=== PATIENT | female | born 1990 | race Caucasian/White ===

== ENCOUNTER → 2018-07-21 13:00 | Outpatient (CLI) | payer OTHER, SELFPAY | DX: Z23 Encounter for immunization (principal) | CPT/HCPCS: 90471; 90686 ==

== ENCOUNTER → 2024-07-02 17:59 | Outpatient (CLI) | payer OTHER, SELFPAY | PROVIDERS: PCP Family Medicine; Referring Provider Internal Medicine; Visit Provider Internal Medicine | DX: Z23 Encounter for immunization (principal) | CPT/HCPCS: 90471; 90656 ==

== ENCOUNTER 2024-08-24 20:19 | Emergency (ER) | payer OTHER, SELFPAY ==
[2024-08-24 20:24] VITALS: BP 132/90; PULSE 70; RESP 16; TEMP 36.6; O2SAT 100; BMI 28.0
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
[2024-08-24] MEDS: AMOXICILLIN/CLAV 875/125 MG 1 TAB PO (20:31)
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
== END 2024-08-24 21:22 | disposition home or self-care (01) ==
PROVIDERS: Emergency Provider Student in an Organized Health Care Education/Training Program
DX: S61.052A Open bite of left thumb without damage to nail, initial encounter (principal); W50.3XXA Accidental bite by another person, initial encounter; Y99.0 Civilian activity done for income or pay
CPT/HCPCS: 73130; 99283

== ENCOUNTER 2025-04-24 09:00 | Outpatient (RCR) | payer OTHER, SELFPAY ==
--- NOTE | 2025-03-08 17:58 | PT.OIE ---
Current Diagnoses Pain in right shoulder (03/08/25) Past Medical History (This Medical Record has been edited. Action required.) Cervical ectropion Encounter for fertility preservation counseling Endometrial polyp Headache Menorrhagia Migraines (~2006) Nevus of labia majora Pain due to intrauterine contraceptive device (IUD) Painful menstruation Past Surgical History (This Medical Record has been edited. Action required.) [place] teeth removed Visit Care Team Role Provider Type Vy Martino MD Family Provider Physician Primary Care Provider Specialty: Family Practice INTERACTIVE MEDIA PROJECT MANAGER Address: [address] [place] [address], [id number] Fax: Email: [email or web address] Cynthia Mckay PA-C Attending Provider Advanced Flight Service Specialist Referring Provider Specialty: Orthopedics Orthopedic Surgery Address: [address] [place] [address], [id number] Email: [email or web address] Physical Therapy Initial Evaluation PT-OP-A Visit Information Start: 03/08/25 09:44 Freq: Status: Active Protocol: Document 03/08/25 17:16 BL (Rec: 03/08/25 17:57 BL Laptop) Out-Patient Physical Therapy Visit Information Visit Information Visit Type Initial Evaluation Visit Start Time 09:45 Visit Stop Time 10:30 Visit Number (1) 1/10 (PN by 04/07/25) Number of INFECTION CONTROL NURSE Visits 0 Evaluation Information Evaluation Date 03/08/25 PT-OP-C Subjective Start: 03/08/25 09:44 Freq: Status: Active Protocol: Document 03/08/25 17:16 BL (Rec: 03/08/25 17:57 BL Laptop) OP-PT Subjective Patient Comments Patient Comments Pt presents to the clinic this date with R shoulder pain, pt reports insidious onset. Pt states pain began over a year ago, reports her pain hasnt increased and describes this as more of an annoyance type pain. Pt does report she has started to have clicking and a grinding sensation in her shoulder, pt also reports her symptoms have started to occur in her L shoulder. Pt reports greatest pain with over head activities or reaching behind her back. Reports pain as dully achy pain that is 4/10 at its worst. Pt states she had a cortisone injection without much success. Patient Reported Worse Progress Patient Questionnaires Quick Dash- Upper Extremity Quick Dash UE Score 9% disability PT-OP-F Manual Assessment Start: 03/08/25 09:44 Freq: Status: Active Protocol: Document 03/08/25 17:16 BL (Rec: 03/08/25 17:57 BL Laptop) Manual Assessments Soft Tissue Assessment Soft Tissue Mobility Pt is point tender with palpation through biceps/ Assessment subscapularis area with palpation on R. Joint Mobility Assessment Joint Mobility pt demos rounded shoulders with decreased posterior Assessment translation. PT-OP-H Neuro Start: 03/08/25 09:44 Freq: Status: Active Protocol: Document 03/08/25 17:16 BL (Rec: 03/08/25 17:57 BL Laptop) Sensation Evaluation Comments Summary Comments pt reports occasional numb feeling in R UE with overhead activity or stomach sleeping. Coordination Evaluation Comments Coordination pt denies feelings of coordination changes. Comments PT-OP-J Posture/Palpation/Skin Start: 03/08/25 09:44 Freq: Status: Active Protocol: Document 03/08/25 17:16 BL (Rec: 03/08/25 17:57 BL Laptop) Posture Evaluation Comments Posture Comments Pt demos rounded shoulders with limitations in scapular retraction. PT-OP-K Range of Motion Start: 03/08/25 09:44 Freq: Status: Active Protocol: Document 03/08/25 17:16 BL (Rec: 03/08/25 17:57 BL Laptop) Cervical Spine Range of Motion Cervical Spine Active Percentage Testing Position Sitting Flexion 100 Extension 100 Rotation Left 100 Rotation Right 100 Lateral Flexion Left 100 Lateral Flexion 100 Right Comments pt demos R>L with rotation however both remain WNL. Shoulder Goniometric Range of Motion Shoulder Right Active Shoulder ROM WFL Yes Comments pt demos increased pain to R side with flexion above 160 deg Left Active Shoulder ROM WFL Yes PT-OP-L Special Tests Start: 03/08/25 09:44 Freq: Status: Active Protocol: Document 03/08/25 17:16 BL (Rec: 03/08/25 17:57 BL Laptop) Special Tests Shoulder Special Tests Trigg Test Test Results negative Lift-Off Rotator Cuff Test Results negative Comments pain response when returning from this position Biceps Load II Test Test Results positive Khoury Jerry Impingement Test Results negative Apprehension Test Test Results negative PT-OP-M Strength Start: 03/08/25 09:44 Freq: Status: Active Protocol: Document 03/08/25 17:16 BL (Rec: 03/08/25 17:57 BL Laptop) Scapula Strength Scapula Manual Muscle Testing Right Elevation (C4) 5 Normal Adduction 4 Good Left Elevation (C4) 5 Normal Adduction 4 Good Shoulder Strength Shoulder Manual Muscle Testing Right Flexion 4+ Good+ Abduction (C5) 4 Good External Rotation 4 Good Internal Rotation 4+ Good+ Left Flexion 4+ Good+ Abduction (C5) 4+ Good+ External Rotation 4+ Good+ Internal Rotation 4+ Good+ PT-OP-Q Treatments Start: 03/08/25 09:44 Freq: Status: Active Protocol: Document 03/08/25 17:16 BL (Rec: 03/08/25 17:57 BL Laptop) Therapeutic Exercises Sidelying Exercises strength Sidelying Exercise ER to 90 Name Resistance 0# Comments 1x10 Standing Exercises posture Standing Exercise scap retraction, wall angles Name Comments 10x PT-OP-T Assessment and Plan Start: 03/08/25 09:44 Freq: Status: Active Protocol: Document 03/08/25 17:16 BL (Rec: 03/08/25 17:57 BL Laptop) Physical Therapy Assessment Rehab Potential Rehabilitation Good Potential Evaluation Complexity Number of Personal 1-2 Factors/ Comorbidities Number of Body 3 Systems Impaired Clinical Evolving Presentation at Evaluation Impairments Impairments Activity Tolerance,Functional Activities,Functional Mobility,Pain,Posture,ROM,Sensation,Soft Tissue Mobility,Strength Goals Three Fpc Goal (LTG) Pt will report being able complete work shift without increase in symptoms by DC for improved quality of life . Two Oenologist Goal (LTG) Pt will report a decrease in pain to 1/10 or better with washing her hair by DC for improved quality of life. One Short Term Goal (STG pt will be ind with HEP within 2 visit in order to ) progress toward long distance operator therapy goals outside of therapy visits. Fpc Goal (LTG) Pt will demo improved R ER strength to 4+/5 by DC for improved completion of ADLS. Assessment Summary Assessment Pt presents to the clinic this date with R shoulder pain with over head activities that has been present for over a year. Pt demos limitations in pain free AROM and strength. Pt also demos decreased scapular strength and postural awareness and will benefit from skilled Physical Therapy for strength and endurance training to improve posture and decrease strain through shoulder. Todays testing revealed possible labral involvement and pt may benefit from additional imaging to rule out labral tear in the future. Physical Therapy Plan Frequency and Duration Frequency of 2x/Week Treatment Duration of 8 treatment (weeks) Plan of Care Start 03/08/25 Date Plan of Care End 05/03/25 Date Therapeutic Interventions Therapeutic Coordination Training,Home Exercise Program,Joint Interventions Mobilizations,Manual Therapy,Neuromuscular Re-education ,Patient/Caregiver Education,Self-Care/Home Management, Sensory Integration,Soft Tissue Mobilization,Taping, Therapeutic Activities,Therapeutic Exercises Modalities Cold Pack/Ice Massage,Electric Stimulation,Hot Packs, Infrared Therapy,Iontophoresis,Ultrasound Next Visit Focus/Plan Next Note Type Treatment Note Next Visit Plan Progress HEP for scapular strengthening, further testing for labral tear, postural modification and strengthening.
--- NOTE | 2025-03-08 17:58 | PT.OPPOC ---
Physical, Occupational & Speech Therapy At [facility] Current Diagnoses Pain in right shoulder (03/08/25) Visit Care Team Role Provider Type Vy Martino MD Family Provider Physician Primary Care Provider Specialty: Family Practice MERCURY RECOVERER Address: [address] [place], [address] Fax: Email: [email or web address] Cynthia Mckay PA-C Attending Provider Advanced Light Coil Winder Referring Provider Specialty: Orthopedics Orthopedic Surgery Address: [address] [place] [address], [phone] Email: [email or web address] Plan Of Care PT-OP-T Assessment and Plan Start: 03/08/25 09:44 Freq: Status: Active Protocol: Document 03/08/25 17:16 BL (Rec: 03/08/25 17:57 BL Laptop) Physical Therapy Assessment Rehab Potential Rehabilitation Good Potential Evaluation Complexity Number of Personal 1-2 Factors/ Comorbidities Number of Body 3 Systems Impaired Clinical Evolving Presentation at Evaluation Impairments Impairments Activity Tolerance,Functional Activities,Functional Mobility,Pain,Posture,ROM,Sensation,Soft Tissue Mobility,Strength Goals Three White Sugar Pan Tank Operator Goal (LTG) Pt will report being able complete work shift without increase in symptoms by DC for improved quality of life . Two Long-Term Goal (LTG) Pt will report a decrease in pain to 1/10 or better with washing her hair by DC for improved quality of life. One Short Term Goal (STG pt will be ind with HEP within 2 visit in order to ) progress toward rat exterminator therapy goals outside of therapy visits. White Sugar Pan Tank Operator Goal (LTG) Pt will demo improved R ER strength to 4+/5 by DC for improved completion of ADLS. Assessment Summary Assessment Pt presents to the clinic this date with R shoulder pain with over head activities that has been present for over a year. Pt demos limitations in pain free AROM and strength. Pt also demos decreased scapular strength and postural awareness and will benefit from skilled Physical Therapy for strength and endurance training to improve posture and decrease strain through shoulder. Todays testing revealed possible labral involvement and pt may benefit from additional imaging to rule out labral tear in the future. Physical Therapy Plan Frequency and Duration Frequency of 2x/Week Treatment Duration of 8 treatment (weeks) Plan of Care Start 03/08/25 Date Plan of Care End 05/03/25 Date Therapeutic Interventions Therapeutic Coordination Training,Home Exercise Program,Joint Interventions Mobilizations,Manual Therapy,Neuromuscular Re-education ,Patient/Caregiver Education,Self-Care/Home Management, Sensory Integration,Soft Tissue Mobilization,Taping, Therapeutic Activities,Therapeutic Exercises Modalities Cold Pack/Ice Massage,Electric Stimulation,Hot Packs, Infrared Therapy,Iontophoresis,Ultrasound Next Visit Focus/Plan Next Note Type Treatment Note Next Visit Plan Progress HEP for scapular strengthening, further testing for labral tear, postural modification and strengthening. Plan of Care Dates Plan of Care Start Date 03/08/25 Plan of Care End Date 05/03/25 Electronically Signed by: Richi Phillips, PT 03/08/25 9990 If you are in agreement with this Plan of Care, please return a signed and dated copy. I have reviewed this Plan of Care and certify that the skilled therapy services above are required to meet the patient?s needs. Physician Signature Date Printed Name and Credentials Clinical Instructor Signature Printed Name and Credentials
--- NOTE | 2025-03-15 09:52 | PT.OTN ---
Current Diagnoses Pain in right shoulder (03/15/25) Physical Therapy Treatment Note PT-OP-A Visit Information Start: 03/08/25 09:44 Freq: Status: Active Protocol: Document 03/15/25 09:12 BL (Rec: 03/15/25 09:52 BL Laptop) Out-Patient Physical Therapy Visit Information Visit Information Visit Type Treatment Note Visit Start Time 09:05 Visit Stop Time 09:45 Visit Number (2) 2/10 (PN by 04/07/25) Number of CHIEF TRANSFER AND PUMPHOUSE OPERATOR Visits 0 PT-OP-C Subjective Start: 03/08/25 09:44 Freq: Status: Active Protocol: Document 03/15/25 09:12 BL (Rec: 03/15/25 09:52 BL Laptop) OP-PT Subjective Patient Comments Patient Comments Pt PT-OP-F Manual Assessment Start: 03/08/25 09:44 Freq: Status: Active Protocol: Document 03/08/25 17:16 BL (Rec: 03/08/25 17:57 BL Laptop) Manual Assessments Soft Tissue Assessment Soft Tissue Mobility Pt is point tender with palpation through biceps/ Assessment subscapularis area with palpation on R. Joint Mobility Assessment Joint Mobility pt demos rounded shoulders with decreased posterior Assessment translation. PT-OP-H Neuro Start: 03/08/25 09:44 Freq: Status: Active Protocol: Document 03/08/25 17:16 BL (Rec: 03/08/25 17:57 BL Laptop) Sensation Evaluation Comments Summary Comments pt reports occasional numb feeling in R UE with overhead activity or stomach sleeping. Coordination Evaluation Comments Coordination pt denies feelings of coordination changes. Comments PT-OP-J Posture/Palpation/Skin Start: 03/08/25 09:44 Freq: Status: Active Protocol: Document 03/08/25 17:16 BL (Rec: 03/08/25 17:57 BL Laptop) Posture Evaluation Comments Posture Comments Pt demos rounded shoulders with limitations in scapular retraction. PT-OP-K Range of Motion Start: 03/08/25 09:44 Freq: Status: Active Protocol: Document 03/08/25 17:16 BL (Rec: 03/08/25 17:57 BL Laptop) Cervical Spine Range of Motion Cervical Spine Active Percentage Testing Position Sitting Flexion 100 Extension 100 Rotation Left 100 Rotation Right 100 Lateral Flexion Left 100 Lateral Flexion 100 Right Comments pt demos R>L with rotation however both remain WNL. Shoulder Goniometric Range of Motion Shoulder Right Active Shoulder ROM WFL Yes Comments pt demos increased pain to R side with flexion above 160 deg Left Active Shoulder ROM WFL Yes PT-OP-L Special Tests Start: 03/08/25 09:44 Freq: Status: Active Protocol: Document 03/08/25 17:16 BL (Rec: 03/08/25 17:57 BL Laptop) Special Tests Shoulder Special Tests Walton Test Test Results negative Lift-Off Rotator Cuff Test Results negative Comments pain response when returning from this position Biceps Load II Test Test Results positive Khoury Jerry Impingement Test Results negative Apprehension Test Test Results negative PT-OP-M Strength Start: 03/08/25 09:44 Freq: Status: Active Protocol: Document 03/08/25 17:16 BL (Rec: 03/08/25 17:57 BL Laptop) Scapula Strength Scapula Manual Muscle Testing Right Elevation (C4) 5 Normal Adduction 4 Good Left Elevation (C4) 5 Normal Adduction 4 Good Shoulder Strength Shoulder Manual Muscle Testing Right Flexion 4+ Good+ Abduction (C5) 4 Good External Rotation 4 Good Internal Rotation 4+ Good+ Left Flexion 4+ Good+ Abduction (C5) 4+ Good+ External Rotation 4+ Good+ Internal Rotation 4+ Good+ PT-OP-Q Treatments Start: 03/08/25 09:44 Freq: Status: Active Protocol: Document 03/15/25 09:12 BL (Rec: 03/15/25 09:52 BL Laptop) Therapeutic Exercises Prone Exercises strength Prone Exercise Name A, T, Ys Sidelying Exercises strength Sidelying Exercise ER to 90, Name Resistance 0# Comments 1x10 Standing Exercises posture Standing Exercise scap retraction, wall angles, 4way TB Name Equipment Used lvl 3 Comments 10x Manual Therapy Treatment Consent Patient gave verbal Yes consent for manual treatment Soft Tissue Mobilization shoulder Comments A/P mobs with distraction to L glenohumeral area along with subscapularis release PT-OP-T Assessment and Plan Start: 03/08/25 09:44 Freq: Status: Active Protocol: Document 03/15/25 09:12 BL (Rec: 03/15/25 09:52 BL Laptop) Physical Therapy Assessment Goals Three Care Home Goal (LTG) Pt will report being able complete work shift without increase in symptoms by DC for improved quality of life . Two Care Home Goal (LTG) Pt will report a decrease in pain to 1/10 or better with washing her hair by DC for improved quality of life. One Short Term Goal (STG pt will be ind with HEP within 2 visit in order to ) progress toward intermediate teacher therapy goals outside of therapy visits. Soft Metals Engraver Hand Goal (LTG) Pt will demo improved R ER strength to 4+/5 by DC for improved completion of ADLS. Assessment Summary Assessment Pt tolerates advancement of HEP well, continue to focus on RC strengthening. Physical Therapy Plan Frequency and Duration Frequency of 2x/Week Treatment Duration of 8 treatment (weeks) Plan of Care Start 03/08/25 Date Plan of Care End 05/03/25 Date Next Visit Focus/Plan Next Note Type Treatment Note Next Visit Plan Progress HEP for scapular strengthening, further testing for labral tear, postural modification and strengthening.
--- NOTE | 2025-04-05 11:31 | PT.OTN ---
Current Diagnoses Pain in right shoulder (04/05/25) Physical Therapy Treatment Note PT-OP-A Visit Information Start: 03/08/25 09:44 Freq: Status: Active Protocol: Document 04/05/25 08:18 BL (Rec: 04/05/25 09:02 BL Laptop) Out-Patient Physical Therapy Visit Information Visit Information Visit Type Treatment Note Visit Start Time 08:15 Visit Stop Time 08:55 Visit Number (3) 3/10 (PN by 04/07/25) Number of SPRING TACKER Visits 0 PT-OP-C Subjective Start: 03/08/25 09:44 Freq: Status: Active Protocol: Document 04/05/25 08:18 BL (Rec: 04/05/25 09:02 BL Laptop) OP-PT Subjective Patient Comments Patient Comments Pt presents to the clinic this date and reports she was noticing improvements in her symptoms but participated in a softball tournament last weekend and was sore the next several days. Pt also reports migraines on the right side of her neck several times a month. PT-OP-F Manual Assessment Start: 03/08/25 09:44 Freq: Status: Active Protocol: Document 03/08/25 17:16 BL (Rec: 03/08/25 17:57 BL Laptop) Manual Assessments Soft Tissue Assessment Soft Tissue Mobility Pt is point tender with palpation through biceps/ Assessment subscapularis area with palpation on R. Joint Mobility Assessment Joint Mobility pt demos rounded shoulders with decreased posterior Assessment translation. PT-OP-H Neuro Start: 03/08/25 09:44 Freq: Status: Active Protocol: Document 03/08/25 17:16 BL (Rec: 03/08/25 17:57 BL Laptop) Sensation Evaluation Comments Summary Comments pt reports occasional numb feeling in R UE with overhead activity or stomach sleeping. Coordination Evaluation Comments Coordination pt denies feelings of coordination changes. Comments PT-OP-J Posture/Palpation/Skin Start: 03/08/25 09:44 Freq: Status: Active Protocol: Document 03/08/25 17:16 BL (Rec: 03/08/25 17:57 BL Laptop) Posture Evaluation Comments Posture Comments Pt demos rounded shoulders with limitations in scapular retraction. PT-OP-K Range of Motion Start: 03/08/25 09:44 Freq: Status: Active Protocol: Document 03/08/25 17:16 BL (Rec: 03/08/25 17:57 BL Laptop) Cervical Spine Range of Motion Cervical Spine Active Percentage Testing Position Sitting Flexion 100 Extension 100 Rotation Left 100 Rotation Right 100 Lateral Flexion Left 100 Lateral Flexion 100 Right Comments pt demos R>L with rotation however both remain WNL. Shoulder Goniometric Range of Motion Shoulder Right Active Shoulder ROM WFL Yes Comments pt demos increased pain to R side with flexion above 160 deg Left Active Shoulder ROM WFL Yes PT-OP-L Special Tests Start: 03/08/25 09:44 Freq: Status: Active Protocol: Document 03/08/25 17:16 BL (Rec: 03/08/25 17:57 BL Laptop) Special Tests Shoulder Special Tests [place] Test Test Results negative Lift-Off Rotator Cuff Test Results negative Comments pain response when returning from this position Biceps Load II Test Test Results positive Khoury Jerry Impingement Test Results negative Apprehension Test Test Results negative PT-OP-M Strength Start: 03/08/25 09:44 Freq: Status: Active Protocol: Document 03/08/25 17:16 BL (Rec: 03/08/25 17:57 BL Laptop) Scapula Strength Scapula Manual Muscle Testing Right Elevation (C4) 5 Normal Adduction 4 Good Left Elevation (C4) 5 Normal Adduction 4 Good Shoulder Strength Shoulder Manual Muscle Testing Right Flexion 4+ Good+ Abduction (C5) 4 Good External Rotation 4 Good Internal Rotation 4+ Good+ Left Flexion 4+ Good+ Abduction (C5) 4+ Good+ External Rotation 4+ Good+ Internal Rotation 4+ Good+ PT-OP-Q Treatments Start: 03/08/25 09:44 Freq: Status: Active Protocol: Document 04/05/25 08:18 BL (Rec: 04/05/25 09:02 BL Laptop) Therapeutic Exercises Prone Exercises strength Prone Exercise Name A, T, Ys on 75SB Sidelying Exercises strength Sidelying Exercise ER to 90, Name Resistance 0# Comments 1x10 Sitting Exercises stretch Sitting Exercise R upper trap stretch Name Standing Exercises posture Standing Exercise Wall Ball, 90 deg elbow walk outs with TB at wrist Name Equipment Used red TB ball, lvl1 band Comments fatigued following, band provided for home Manual Therapy Treatment Consent Patient gave verbal Yes consent for manual treatment Soft Tissue Mobilization shoulder Comments subscapularis release, DTM to R cervical stabilizers and passive upper trap stretch PT-OP-T Assessment and Plan Start: 03/08/25 09:44 Freq: Status: Active Protocol: Document 04/05/25 08:18 BL (Rec: 04/05/25 09:02 BL Laptop) Physical Therapy Assessment Goals Three Fci Goal (LTG) Pt will report being able complete work shift without increase in symptoms by DC for improved quality of life . Two Fci Goal (LTG) Pt will report a decrease in pain to 1/10 or better with washing her hair by DC for improved quality of life. One Short Term Goal (STG pt will be ind with HEP within 2 visit in order to ) progress toward fci therapy goals outside of therapy visits. Highway Maintenance Technician Goal (LTG) Pt will demo improved R ER strength to 4+/5 by DC for improved completion of ADLS. Assessment Summary Assessment Pt tolerates advancement of HEP well, continue to focus on RC strengthening. Pt demos stiffness in R cervical extensors and and upper trap. Continue to advance per pt tolerance. Physical Therapy Plan Frequency and Duration Frequency of 2x/Week Treatment Duration of 8 treatment (weeks) Plan of Care Start 03/08/25 Date Plan of Care End 05/03/25 Date Next Visit Focus/Plan Next Note Type Treatment Note Next Visit Plan Progress HEP for scapular strengthening, further testing for labral tear, postural modification and strengthening.
--- NOTE | 2025-04-05 12:43 | PT.OPPN ---
Current Diagnoses Pain in right shoulder (04/05/25) Physical Therapy Progress Note PT-OP-A Visit Information Start: 03/08/25 09:44 Freq: Status: Active Protocol: Document 04/05/25 08:18 BL (Rec: 04/05/25 09:02 BL Laptop) Out-Patient Physical Therapy Visit Information Visit Information Visit Type Progress Note Visit Start Time 08:15 Visit Stop Time 08:55 Visit Number (3) 09/28 (PN by 05/06/25) Number of COMMUNITY AFFAIRS DIRECTOR Visits 0 PT-OP-C Subjective Start: 03/08/25 09:44 Freq: Status: Active Protocol: Document 04/05/25 08:18 BL (Rec: 04/05/25 09:02 BL Laptop) OP-PT Subjective Patient Comments Patient Comments Pt presents to the clinic this date and reports she was noticing improvements in her symptoms but participated in a softball tournament last weekend and was sore the next several days. Pt also reports migraines on the right side of her neck several times a month. Patient Reported Improving Progress PT-OP-F Manual Assessment Start: 03/08/25 09:44 Freq: Status: Active Protocol: Document 03/08/25 17:16 BL (Rec: 03/08/25 17:57 BL Laptop) Manual Assessments Soft Tissue Assessment Soft Tissue Mobility Pt is point tender with palpation through biceps/ Assessment subscapularis area with palpation on R. Joint Mobility Assessment Joint Mobility pt demos rounded shoulders with decreased posterior Assessment translation. PT-OP-H Neuro Start: 03/08/25 09:44 Freq: Status: Active Protocol: Document 03/08/25 17:16 BL (Rec: 03/08/25 17:57 BL Laptop) Sensation Evaluation Comments Summary Comments pt reports occasional numb feeling in R UE with overhead activity or stomach sleeping. Coordination Evaluation Comments Coordination pt denies feelings of coordination changes. Comments PT-OP-J Posture/Palpation/Skin Start: 03/08/25 09:44 Freq: Status: Active Protocol: Document 03/08/25 17:16 BL (Rec: 03/08/25 17:57 BL Laptop) Posture Evaluation Comments Posture Comments Pt demos rounded shoulders with limitations in scapular retraction. PT-OP-K Range of Motion Start: 03/08/25 09:44 Freq: Status: Active Protocol: Document 03/08/25 17:16 BL (Rec: 03/08/25 17:57 BL Laptop) Cervical Spine Range of Motion Cervical Spine Active Percentage Testing Position Sitting Flexion 100 Extension 100 Rotation Left 100 Rotation Right 100 Lateral Flexion Left 100 Lateral Flexion 100 Right Comments pt demos R>L with rotation however both remain WNL. Shoulder Goniometric Range of Motion Shoulder Measured in Degrees Right Active Shoulder ROM WFL Yes Comments pt demos increased pain to R side with flexion above 160 deg Left Active Shoulder ROM WFL Yes PT-OP-L Special Tests Start: 03/08/25 09:44 Freq: Status: Active Protocol: Document 03/08/25 17:16 BL (Rec: 03/08/25 17:57 BL Laptop) Special Tests Shoulder Special Tests [place] Test Test Results negative Lift-Off Rotator Cuff Test Results negative Comments pain response when returning from this position Biceps Load II Test Test Results positive Khoury Jerry Impingement Test Results negative Apprehension Test Test Results negative PT-OP-M Strength Start: 03/08/25 09:44 Freq: Status: Active Protocol: Document 03/08/25 17:16 BL (Rec: 03/08/25 17:57 BL Laptop) Scapula Strength Scapula Manual Muscle Testing Right Elevation (C4) 5 Normal Adduction 4 Good Left Elevation (C4) 5 Normal Adduction 4 Good Shoulder Strength Shoulder Manual Muscle Testing Right Flexion 4+ Good+ Abduction (C5) 4 Good External Rotation 4 Good Internal Rotation 4+ Good+ Left Flexion 4+ Good+ Abduction (C5) 4+ Good+ External Rotation 4+ Good+ Internal Rotation 4+ Good+ PT-OP-T Assessment and Plan Start: 03/08/25 09:44 Freq: Status: Active Protocol: Document 04/05/25 08:18 BL (Rec: 04/05/25 09:02 BL Laptop) Physical Therapy Assessment Goals Three Health Services Information Specialist Goal (LTG) Pt will report being able complete work shift without increase in symptoms by DC for improved quality of life . (progressing) 04/05/25: pt reports improvement in symptoms however by the end of the shift she continues to notice slight increase in the discomfort in her shoulder. Two Health Services Information Specialist Goal (LTG) Pt will report a decrease in pain to 1/10 or better with washing her hair by DC for improved quality of life. (progressing) 04/05/25: pt reports times where she has no pain but still has the discomfort throughout the week at time. One Short Term Goal (STG pt will be ind with HEP within 2 visit in order to ) progress toward manager terminal therapy goals outside of therapy visits. (Goal MEt) Detention Goal (LTG) Pt will demo improved R ER strength to 4+/5 by DC for improved completion of ADLS. (progressing) R ER strength 4/5 this date but demos decreased shaking this session. Assessment Summary Assessment Pt continues to advance and is able to tolerates increased challenge for RC strength as well as scapular stability with overhead activities, continue to focus on RC strengthening. Pt demos stiffness in R cervical extensors and and upper trap this date and is provided print out for stretching activities as well as education on gentle stretching. Continue to advance per pt tolerance. Pt will continue to benefit from skilled PT intervention to further strengthen RC and scapular stabilizers. Physical Therapy Plan Frequency and Duration Frequency of 2x/Week Treatment Duration of 8 treatment (weeks) Plan of Care Start 03/08/25 Date Plan of Care End 05/03/25 Date Next Visit Focus/Plan Next Note Type Treatment Note Next Visit Plan Progress HEP for scapular strengthening, further testing for labral tear, postural modification and strengthening.
--- NOTE | 2025-04-24 18:30 | PT.OTN ---
Current Diagnoses Pain in right shoulder (04/24/25) Physical Therapy Treatment Note PT OP: Cervical/Upper Extremity Start: 04/24/25 08:56 Freq: Status: Active Protocol: Document 04/24/25 09:05 BL (Rec: 04/24/25 09:50 BL Laptop) Out-Patient Physical Therapy Visit Information Visit Information Visit Type Treatment Note Visit Start Time 09:10 Visit Stop Time 09:40 Visit Number (4) 2/ (PN by 05/06/25) Number of HOUSING GRANT ANALYST Visits 0 OP-PT Subjective Patient Comments Patient Comments Pt presents to the clinic a few minutes late this date, pt reports she continues to have discomfort in the front of her shoulder, was painful over vacation but also states she was not as active with her HEP. Therapeutic Exercises Prone Exercises strength Prone Exercise Name A, T, Ys on 75SB Sidelying Exercises strength Sidelying Exercise ER to 90, Name Resistance 0# Comments 1x10 Sitting Exercises stretch Sitting Exercise R upper trap stretch Name Standing Exercises Stabilization Standing Exercise Body Blade 90/90: flex/ext, ER/IR Name Comments 3x30 sec ea posture Standing Exercise Wall Ball, 90 deg elbow walk outs with TB at wrist Name Equipment Used red TB ball, lvl2 band Comments fatigued following, band provided for home Physical Therapy Assessment Goals Three Shelter Goal (LTG) Pt will report being able complete work shift without increase in symptoms by DC for improved quality of life . (progressing) 04/05/25: pt reports improvement in symptoms however by the end of the shift she continues to notice slight increase in the discomfort in her shoulder. Two Shelter Goal (LTG) Pt will report a decrease in pain to 1/10 or better with washing her hair by DC for improved quality of life. (progressing) 04/05/25: pt reports times where she has no pain but still has the discomfort throughout the week at time. One Short Term Goal (STG pt will be ind with HEP within 2 visit in order to ) progress toward senior living therapy goals outside of therapy visits. (Goal MEt) Shelter Goal (LTG) Pt will demo improved R ER strength to 4+/5 by DC for improved completion of ADLS. (progressing) R ER strength 4/5 this date but demos decreased shaking this session. Assessment Summary Assessment Pt demos increased crepitus this date, pt tolerates advancement of HEP for improved RC strengthening and glenohumeral depression. Pt continues to demo R scapular wining and encouraged to continue working on lower trap activation and stabilization. Physical Therapy Plan Frequency and Duration Frequency of 2x/Week Treatment Duration of 8 treatment (weeks) Plan of Care Start 03/08/25 Date Plan of Care End 05/03/25 Date Next Visit Focus/Plan Next Note Type Treatment Note Next Visit Plan Progress HEP for scapular strengthening, further testing for labral tear, postural modification and strengthening. PT-OP-A Visit Information Start: 03/08/25 09:44 Freq: Status: Active Protocol: Document 04/05/25 08:18 BL (Rec: 04/05/25 09:02 BL Laptop) Out-Patient Physical Therapy Visit Information Visit Information Visit Type Progress Note Visit Start Time 08:15 Visit Stop Time 08:55 Visit Number (3) 09/28 (PN by 05/06/25) Number of HOUSING GRANT ANALYST Visits 0 PT-OP-C Subjective Start: 03/08/25 09:44 Freq: Status: Active Protocol: Document 04/05/25 08:18 BL (Rec: 04/05/25 09:02 BL Laptop) OP-PT Subjective Patient Comments Patient Comments Pt presents to the clinic this date and reports she was noticing improvements in her symptoms but participated in a softball tournament last weekend and was sore the next several days. Pt also reports migraines on the right side of her neck several times a month. Patient Reported Improving Progress PT-OP-F Manual Assessment Start: 03/08/25 09:44 Freq: Status: Active Protocol: Document 03/08/25 17:16 BL (Rec: 03/08/25 17:57 BL Laptop) Manual Assessments Soft Tissue Assessment Soft Tissue Mobility Pt is point tender with palpation through biceps/ Assessment subscapularis area with palpation on R. Joint Mobility Assessment Joint Mobility pt demos rounded shoulders with decreased posterior Assessment translation. PT-OP-H Neuro Start: 03/08/25 09:44 Freq: Status: Active Protocol: Document 03/08/25 17:16 BL (Rec: 03/08/25 17:57 BL Laptop) Sensation Evaluation Comments Summary Comments pt reports occasional numb feeling in R UE with overhead activity or stomach sleeping. Coordination Evaluation Comments Coordination pt denies feelings of coordination changes. Comments PT-OP-J Posture/Palpation/Skin Start: 03/08/25 09:44 Freq: Status: Active Protocol: Document 03/08/25 17:16 BL (Rec: 03/08/25 17:57 BL Laptop) Posture Evaluation Comments Posture Comments Pt demos rounded shoulders with limitations in scapular retraction. PT-OP-K Range of Motion Start: 03/08/25 09:44 Freq: Status: Active Protocol: Document 03/08/25 17:16 BL (Rec: 03/08/25 17:57 BL Laptop) Cervical Spine Range of Motion Cervical Spine Active Percentage Testing Position Sitting Flexion 100 Extension 100 Rotation Left 100 Rotation Right 100 Lateral Flexion Left 100 Lateral Flexion 100 Right Comments pt demos R>L with rotation however both remain WNL. Shoulder Goniometric Range of Motion Shoulder Right Active Shoulder ROM WFL Yes Comments pt demos increased pain to R side with flexion above 160 deg Left Active Shoulder ROM WFL Yes PT-OP-L Special Tests Start: 03/08/25 09:44 Freq: Status: Active Protocol: Document 03/08/25 17:16 BL (Rec: 03/08/25 17:57 BL Laptop) Special Tests Shoulder Special Tests [place] Test Test Results negative Lift-Off Rotator Cuff Test Results negative Comments pain response when returning from this position Biceps Load II Test Test Results positive Khoury Jerry Impingement Test Results negative Apprehension Test Test Results negative PT-OP-M Strength Start: 03/08/25 09:44 Freq: Status: Active Protocol: Document 03/08/25 17:16 BL (Rec: 03/08/25 17:57 BL Laptop) Scapula Strength Scapula Manual Muscle Testing Right Elevation (C4) 5 Normal Adduction 4 Good Left Elevation (C4) 5 Normal Adduction 4 Good Shoulder Strength Shoulder Manual Muscle Testing Right Flexion 4+ Good+ Abduction (C5) 4 Good External Rotation 4 Good Internal Rotation 4+ Good+ Left Flexion 4+ Good+ Abduction (C5) 4+ Good+ External Rotation 4+ Good+ Internal Rotation 4+ Good+ PT-OP-Q Treatments Start: 03/08/25 09:44 Freq: Status: Active Protocol: Document 04/05/25 08:18 BL (Rec: 04/05/25 09:02 BL Laptop) Therapeutic Exercises Prone Exercises strength Prone Exercise Name A, T, Ys on 75SB Sidelying Exercises strength Sidelying Exercise ER to 90, Name Resistance 0# Comments 1x10 Sitting Exercises stretch Sitting Exercise R upper trap stretch Name Standing Exercises posture Standing Exercise Wall Ball, 90 deg elbow walk outs with TB at wrist Name Equipment Used red TB ball, lvl1 band Comments fatigued following, band provided for home Manual Therapy Treatment Consent Patient gave verbal Yes consent for manual treatment Soft Tissue Mobilization shoulder Comments subscapularis release, DTM to R cervical stabilizers and passive upper trap stretch PT-OP-T Assessment and Plan Start: 03/08/25 09:44 Freq: Status: Active Protocol: Document 04/05/25 08:18 BL (Rec: 04/05/25 09:02 BL Laptop) Physical Therapy Assessment Goals Three Meter Reader Chief Goal (LTG) Pt will report being able complete work shift without increase in symptoms by DC for improved quality of life . (progressing) 04/05/25: pt reports improvement in symptoms however by the end of the shift she continues to notice slight increase in the discomfort in her shoulder. Two Meter Reader Chief Goal (LTG) Pt will report a decrease in pain to 1/10 or better with washing her hair by DC for improved quality of life. (progressing) 04/05/25: pt reports times where she has no pain but still has the discomfort throughout the week at time. One Short Term Goal (STG pt will be ind with HEP within 2 visit in order to ) progress toward pilot highway patrol therapy goals outside of therapy visits. (Goal MEt) Meter Reader Chief Goal (LTG) Pt will demo improved R ER strength to 4+/5 by DC for improved completion of ADLS. (progressing) R ER strength 4/5 this date but demos decreased shaking this session. Assessment Summary Assessment Pt continues to advance and is able to tolerates increased challenge for RC strength as well as scapular stability with overhead activities, continue to focus on RC strengthening. Pt demos stiffness in R cervical extensors and and upper trap this date and is provided print out for stretching activities as well as education on gentle stretching. Continue to advance per pt tolerance. Pt will continue to benefit from skilled PT intervention to further strengthen RC and scapular stabilizers. Physical Therapy Plan Frequency and Duration Frequency of 2x/Week Treatment Duration of 8 treatment (weeks) Plan of Care Start 03/08/25 Date Plan of Care End 05/03/25 Date Next Visit Focus/Plan Next Note Type Treatment Note Next Visit Plan Progress HEP for scapular strengthening, further testing for labral tear, postural modification and strengthening.
--- NOTE | 2025-05-29 14:12 | PT.OPDS ---
Current Diagnoses Pain in right shoulder (04/24/25) Visit Care Team Role Provider Type Vy Martino MD Family Provider Physician Primary Care Provider Specialty: Family Practice PROFESSOR OF BUSINESS Address: [address] [place], [address] Fax: Email: [email or web address] Cynthia Mckay PA-C Attending Provider Advanced News Photographer Referring Provider Specialty: Orthopedics Orthopedic Surgery Address: [address] [place] [address] [place], [address] Email: [email or web address] Visit Number Visit Number (4) 2 (PN by 05/06/25) Discharge Summary Unable to follow up with pt, plan to DC pt at this time. 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 Therapeutic Exercises Prone Exercises strength Prone Exercise Name A, T, Ys on 75SB Sidelying Exercises strength Sidelying Exercise ER to 90, Name Resistance 0# Comments 1x10 Sitting Exercises stretch Sitting Exercise R upper trap stretch Name Standing Exercises Stabilization Standing Exercise Body Blade 90/90: flex/ext, ER/IR Name Comments 3x30 sec ea posture Standing Exercise Wall Ball, 90 deg elbow walk outs with TB at wrist Name Equipment Used red TB ball, lvl2 band Comments fatigued following, band provided for home Physical Therapy Assessment Goals Three Heritage Consultant Goal (LTG) Pt will report being able complete work shift without increase in symptoms by DC for improved quality of life . (progressing) 04/05/25: pt reports improvement in symptoms however by the end of the shift she continues to notice slight increase in the discomfort in her shoulder. Two Heritage Consultant Goal (LTG) Pt will report a decrease in pain to 1/10 or better with washing her hair by DC for improved quality of life. (progressing) 04/05/25: pt reports times where she has no pain but still has the discomfort throughout the week at time. 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 (Goal MEt) Correction Goal (LTG) Pt will demo improved R ER strength to 4+/5 by DC for improved completion of ADLS. (progressing) R ER strength 4/5 this date but demos decreased shaking this session. Assessment Summary Assessment Pt demos increased crepitus this date, pt tolerates advancement of HEP for improved RC strengthening and glenohumeral depression. Pt continues to demo R scapular wining and encouraged to continue working on lower trap activation and stabilization. Physical Therapy Plan Frequency and Duration Frequency of 2x/Week Treatment Duration of 8 treatment (weeks) Plan of Care Start 03/08/25 Date Plan of Care End 05/03/25 Date Next Visit Focus/Plan Next Note Type Treatment Note Next Visit Plan Progress HEP for scapular strengthening, further testing for labral tear, postural modification and strengthening. 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 Pt also reports migraines on the right side of her neck several times a month. Patient Reported Improving Progress PT-OP-F Manual Assessment Start: 03/08/25 09:44 Freq: Status: Active Protocol: Document 03/08/25 17:16 BL (Rec: 03/08/25 17:57 BL Laptop) Manual Assessments Soft Tissue Assessment Soft Tissue Mobility Pt is point tender with palpation through biceps/ Assessment subscapularis area with palpation on R. Joint Mobility Assessment Joint Mobility pt demos rounded shoulders with decreased posterior Assessment translation. PT-OP-H Neuro Start: 03/08/25 09:44 Freq: Status: Active Protocol: Document 03/08/25 17:16 BL (Rec: 03/08/25 17:57 BL Laptop) Sensation Evaluation Comments Summary Comments pt reports occasional numb feeling in R UE with overhead activity or stomach sleeping. Coordination Evaluation Comments Coordination pt denies feelings of coordination changes. Comments PT-OP-J Posture/Palpation/Skin Start: 03/08/25 09:44 Freq: Status: Active Protocol: Document 03/08/25 17:16 BL (Rec: 03/08/25 17:57 BL Laptop) Posture Evaluation Comments Posture Comments Pt demos rounded shoulders with limitations in scapular retraction. PT-OP-K Range of Motion Start: 03/08/25 09:44 Freq: Status: Active Protocol: Document 03/08/25 17:16 BL (Rec: 03/08/25 17:57 BL Laptop) Cervical Spine Range of Motion Cervical Spine Active Percentage Testing Position Sitting Flexion 100 Extension 100 Rotation Left 100 Rotation Right 100 Lateral Flexion Left 100 Lateral Flexion 100 Right Comments pt demos R>L with rotation however both remain WNL. Shoulder Goniometric Range of Motion Shoulder Right Active Shoulder ROM WFL Yes Comments pt demos increased pain to R side with flexion above 160 deg Left Active Shoulder ROM WFL Yes PT-OP-L Special Tests Start: 03/08/25 09:44 Freq: Status: Active Protocol: Document 03/08/25 17:16 BL (Rec: 03/08/25 17:57 BL Laptop) Special Tests Shoulder Special Tests Yell Test Test Results negative Lift-Off Rotator Cuff Test Results negative Comments pain response when returning from this position Biceps Load II Test Test Results positive Khoury Jerry Impingement Test Results negative Apprehension Test Test Results negative PT-OP-M Strength Start: 03/08/25 09:44 Freq: Status: Active Protocol: Document 03/08/25 17:16 BL (Rec: 03/08/25 17:57 BL Laptop) Scapula Strength Scapula Manual Muscle Testing Right Elevation (C4) 5 Normal Adduction 4 Good Left Elevation (C4) 5 Normal Adduction 4 Good Shoulder Strength Shoulder Manual Muscle Testing Right Flexion 4+ Good+ Abduction (C5) 4 Good External Rotation 4 Good Internal Rotation 4+ Good+ Left Flexion 4+ Good+ Abduction (C5) 4+ Good+ External Rotation 4+ Good+ Internal Rotation 4+ Good+ PT-OP-T Assessment and Plan Start: 03/08/25 09:44 Freq: Status: Active Protocol: Document 04/05/25 08:18 BL (Rec: 04/05/25 09:02 BL Laptop) Physical Therapy Assessment Goals Three Correction Goal (LTG) Pt will report being able complete work shift without increase in symptoms by DC for improved quality of life . (progressing) 04/05/25: pt reports improvement in symptoms however by the end of the shift she continues to notice slight increase in the discomfort in her shoulder. Two Heritage Consultant Goal (LTG) Pt will report a decrease in pain to 1/10 or better with washing her hair by DC for improved quality of life. (progressing) 04/05/25: pt reports times where she has no pain but still has the discomfort throughout the week at time. 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 (Goal MEt) Heritage Consultant Goal (LTG) Pt will demo improved R ER strength to 4+/5 by DC for improved completion of ADLS. (progressing) R ER strength 4/5 this date but demos decreased shaking this session. Assessment Summary Assessment Pt continues to advance and is able to tolerates increased challenge for RC strength as well as scapular stability with overhead activities, continue to focus on RC strengthening. Pt demos stiffness in R cervical extensors and and upper trap this date and is provided print out for stretching activities as well as education on gentle stretching. Continue to advance per pt tolerance. Pt will continue to benefit from skilled PT intervention to further strengthen RC and scapular stabilizers. Physical Therapy Plan Frequency and Duration Frequency of 2x/Week Treatment Duration of 8 treatment (weeks) Plan of Care Start 03/08/25 Date Plan of Care End 05/03/25 Date Next Visit Focus/Plan Next Note Type Treatment Note Next Visit Plan Progress HEP for scapular strengthening, further testing for labral tear, postural modification and strengthening.
== END 2025-05-30 13:20 | disposition home or self-care (01) ==
LOC: PHYS 09:00
PROVIDERS: Family Provider Family Medicine; PCP Family Medicine; Referring Provider Physician Assistant Surgical; Visit Provider Physician Assistant Surgical
DX: M25.511 Pain in right shoulder (principal)
CPT/HCPCS: 97110; 97140; 97162